=== PATIENT | female | born 1995 | race Caucasian/White ===

== ENCOUNTER 2018-08-14 13:41 | Emergency (ER) | payer OTHER ==
[~2018-08-14] VITALS: Ht 157.5 cm; Wt 80.3 kg
[2018-08-14 13:52] VITALS: Ht 157.5 cm; Wt 80.3 kg
[2018-08-14 17:19] LABS: BASOPHIL % 0.4 % (0-2); PLATELET COUNT 370 x10^3mcL (130-400); RED CELL DISTRIBUTION WIDTH 13.2 % (11.5-14.5)
[2018-08-14 17:51] LABS: UA SPECIFIC GRAVITY 1.025 (1.005-1.035); microscopic required? YES; urine erythrocyte TRACE (NEGATIVE)
[2018-08-14 18:24] VITALS: BP 137/75
== END 2018-08-14 18:42 | disposition home or self-care (01) ==
LOC: ED 13:41
PROVIDERS: Emergency Medicine
DX: N76.0 Acute vaginitis (principal)
CPT/HCPCS: 36415; 87491; 87591

== ENCOUNTER 2018-09-15 02:27 | Emergency (ER) | payer OTHER ==
[~2018-09-15] VITALS: Ht 157.5 cm; Wt 83.0 kg
[2018-09-15 02:33] VITALS: BP 145/90; Ht 157.5 cm; Wt 83.0 kg
== END 2018-09-15 03:30 | disposition home or self-care (01) ==
LOC: ED 02:27
DX: Z11.3 Encounter for screening for infections with a predominantly sexual mode of transmission (principal)
CPT/HCPCS: J0696